=== PATIENT | female | born 1990 | race Caucasian/White ===

== ENCOUNTER 2017-10-02 15:52 | Emergency (ER) | payer OTHER, SELFPAY ==
[2017-10-02 15:54] VITALS: BP 137/77; PULSE 99; RESP 16; TEMP 37.1; O2SAT 97; BMI 34.3
--- NOTE | 2017-10-02 17:24 | EKG12_ITS ---
Test Reason : AB LABS Blood Pressure : / mmHG Vent. Rate : 080 BPM Atrial Rate : 080 BPM P-R Int : 152 ms QRS Dur : 070 ms QT Int : 362 ms P-R-T Axes : 030 025 024 degrees QTc Int : 417 ms Normal sinus rhythm Normal ECG Confirmed by RADHA VAZQUEZ, LAVINIA ([id number]), newspaper managing editor MARIA M ODONNELL ([id number]) on 10/04/2017 1:45:53 PM Referred By: DORA Confirmed By:LAVINIA GARCIA MD
--- NOTE | 2017-10-02 17:26 | US_ITS ---
STUDY: THYROID ULTRASOUND REASON FOR EXAM: Female, 27 years old. Left neck mass. TECHNIQUE: Ultrasound evaluation of the thyroid was performed with real-time and static saldana-scale imaging. COMPARISON: None. FINDINGS: RIGHT LOBE: The right lobe of the thyroid gland measures 5.7 x 1.8 x 1.7 cm. There is a heterogeneous echotexture. There are no demonstrated solid, cystic or complex lesions. There is increased vascularity throughout the right lobe. LEFT LOBE: The left lobe of the thyroid gland measures 5.3 x 1.6 x 1.9 cm. There is a heterogeneous echotexture. There are no demonstrated solid, cystic or complex lesions. There is increased vascularity throughout the gland. ISTHMUS: The isthmus measures 4 mm . There are prominent nonpathologically enlarged lymph nodes adjacent to the thyroid gland that are likely reactive. US/Thyroid IMPRESSION: Enlarged, heterogenous and hypervascular thyroid gland suggestive of a history of thyroiditis. Electronically Signed: Becky Luciano MD at 18:18 EST Tel , Service support ,
[2017-10-02 17:49] LABS: Absolute Lymphocyte Count 2.42 X10^3/ul (0.83-4.51); Absolute Neutrophil Count 7.6 X10^3/uL (2.0-7.7); Basophil# 0.07 X10^3/uL; Basophil% 0.6 % (0-1); Eosinophil# 0.27 X10^3/uL; Eosinophils% 2.5 % (0-5); Hematocrit 38.4 % (37-47); Hemoglobin 12.6 g/dl (12.0-15.0); Lymphocyte # 2.42 X10^3/ul (4.0); Lymphocyte % 22.2 % (19-41); Mean Corp Hgb Conc 32.8 g/gl (32-36); Mean Corpuscular Volume 79.2 fL (81-99); Mean Platelet Vol. 10.6 fl (6.2-12.0); Monocyte# 0.52 X10^3/uL; Monocyte% 4.8 % (0-10); Neutrophil # 7.58 X10^3/uL (2.7-7.7); Neutrophil % 69.7 % (47-70); Platelet Count 316 K/mm3 (150-450); RBC Distribution Width CV 13.6 % (11.6-14.6); RBC Distribution Width SD 37.7 fl (35.1-43.9); Red Blood Count 4.85 M/mm3 (4.2-5.4); White Blood Count 10.9 K/mm3 (4.4-11.0)
[2017-10-02 17:51] LABS: POSITIVE COUNT NO; POSITIVE DIFFERENTIAL NO; POSITIVE MORPHOLOGY NO
[2017-10-02 18:04] LABS: T3 Total - Triiodothyronine 1.01 ng/mL (0.6-1.81)
[2017-10-02 18:08] LABS: Anion Gap 5 (5-15); BUN 14 mg/dL (7-18); BUN/Creat Ratio 22.4 RATIO (10-20); Calcium,Total 8.7 mg/dL (8.5-10.1); Chloride 104 mmol/L (98-107); Creatinine, Serum 0.62 mg/dL (0.55-1.02); EST Glomerular Filtration Rate 123 mL/min (>60); Est Glom Filt Rate - Afr Amer 148 mL/min (>60); Estimated Creatinine Clearance 118.74 ml/min; Glucose 79 mg/dL (74-106); Potassium 3.7 mmol/L (3.5-5.1); Sodium Level 135 mmol/L (136-145); T4 Free Direct 0.76 ng/dL (0.76-1.46); Thyroid Stim Hormone (TSH) 3.29 uIU/mL (0.358-3.74)
[2017-10-02 18:29] LABS: Pregnancy, Serum, hCG Quali. NEGATIVE Negative (0-9 Nonpreg)
[2017-10-02 19:38] VITALS: BP 124/67; PULSE 102; RESP 14; O2SAT 98
--- NOTE | 2017-10-02 19:39 | ED.RN ---
1800-Lunch report received from TIANNA Olvera.
--- NOTE | 2017-10-02 19:58 | ED.VISSUMM ---
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 Patient states that approximately a month ago the doctor at the clinic where she works ran a TSH on her. It returned low at 0.02. Patient made an appointment to see a primary care physician but missed the appointment. She states she feels anxious and over the past couple days and started to have some anterior throat pain. She thinks she felt a mass on her thyroid today. Physical Examination: Vital signs are unremarkable. Patient sitting upright in bed in no acute distress. Head neck examination does reveal mild tenderness over the thyroid. I do not appreciate any gross masses. Heart is regular rate and rhythm. No lung sounds are clear. Abdomen is soft nontender. Test Results: Ultrasound of the thyroid shows enlarged, heterogeneous, hypervascular thyroid gland suggestive of a history of thyroiditis. EKG is sinus at 80 with no sign of acute ischemia. CBC is normal. Chemistry studies normal. test negative. TSH, T3, and free T4 are all normal here. Emergency Department Course and Treatment: Test results were discussed with the patient. At this time her thyroid levels are normal. She was encouraged to follow-up for further evaluation of her thyroid. Treatment Plan: [] Disposition: Discharge Impression: Enlarged thyroid with normal thyroid labs This note was generated with [employer] dictation software. It may contain incorrect words, spelling, and punctuation that were not noted in review of the chart prior to signing ED Disposition - Plan for ED Patient: Disposition: Home or Assisted Living Chief Complaint: Abn Labs Instructions: Common Thyroid Problems Referrals: Alvin Scott MD [STAFF PHYSICIAN] -
[2017-10-02 20:12] VITALS: BP 125/76; PULSE 74; RESP 16; O2SAT 99
--- NOTE | 2017-10-02 20:12 | ED.RN ---
REVIEWED D/C INSTRUCTIONS, FOLLOW UP CARE, AND S/S THAT WOULD WARRANT A RETURN TO THE ED WITH PT. PT VERBALIZED AN UNDERSTANDING AND DENIES FURTHER QUESTIONS FOR THIS RN. PT SKIN P/W/D, RESP EVEN AND UNLABORED, PT A&O X 3, NO DISTRESS NOTED. PT AMBULATED OUT OF ED, GAIT STEADY.
== END 2017-10-02 20:15 | disposition home or self-care (01) ==
PROVIDERS: Emergency Provider Emergency Medicine
DX: E04.9 Nontoxic goiter, unspecified (principal)
CPT/HCPCS: 76536; 80048; 84439; 84443; 84480; 84703; 85025; 93005; 99284; A4216

== ENCOUNTER → 2017-12-13 09:59 | Outpatient (CLI) | payer OTHER, SELFPAY ==
[2017-12-13 12:46] LABS: Absolute Lymphocyte Count 2.05 X10^3/ul (0.83-4.51); Absolute Neutrophil Count 5.8 X10^3/uL (2.0-7.7); Basophil# 0.05 X10^3/uL; Basophil% 0.6 % (0-1); Eosinophil# 0.19 X10^3/uL; Eosinophils% 2.2 % (0-5); Hematocrit 35.2 % (37-47); Lymphocyte # 2.05 X10^3/ul (4.0); Lymphocyte % 24.1 % (19-41); Mean Corp Hgb Conc 31.3 g/gl (32-36); Mean Platelet Vol. 11.1 fl (6.2-12.0); Monocyte# 0.43 X10^3/uL; Monocyte% 5.1 % (0-10); Neutrophil # 5.78 X10^3/uL (2.7-7.7); Neutrophil % 67.9 % (47-70); Platelet Count 305 K/mm3 (150-450); RBC Distribution Width CV 13.6 % (11.6-14.6); RBC Distribution Width SD 39.1 fl (35.1-43.9); White Blood Count 8.5 K/mm3 (4.4-11.0)
[2017-12-13 12:48] LABS: Vitamin B12 328 pg/mL (211-911); Vitamin D,25 Hydroxy 11.1 ng/mL (29.95-100.01)
[2017-12-13 12:55] LABS: ALB/GLOB Ratio 0.8 RATIO (0.9-2.4); AST(SGOT) 9 U/L (15-37); Alanine Aminotransfer ALT/SGPT 15 U/L (13-56); Albumin, Serum 3.7 g/dL (3.2-5.0); Alkaline Phosphatase 124 U/L (45-117); Anion Gap 9 (5-15); BUN 12 mg/dL (7-18); BUN/Creat Ratio 19.1 RATIO (10-20); Calcium,Total 8.8 mg/dL (8.5-10.1); Chloride 108 mmol/L (98-107); Creatinine, Serum 0.63 mg/dL (0.55-1.02); EST Glomerular Filtration Rate 122 mL/min (>60); Est Glom Filt Rate - Afr Amer 147 mL/min (>60); Globulin 4.5 g/dL (2.2-4.2); Glucose 79 mg/dL (74-106); Magnesium 2.1 mg/dL (1.6-2.6); POSITIVE COUNT NO; POSITIVE DIFFERENTIAL NO; POSITIVE MORPHOLOGY NO; Potassium 3.7 mmol/L (3.5-5.1); Protein, Total 8.2 g/dL (6.4-8.2); Sodium Level 142 mmol/L (136-145); T4 Free Direct 0.92 ng/dL (0.76-1.46); Thyroid Stim Hormone (TSH) 1.84 uIU/mL (0.358-3.74)
[2017-12-16 11:12] LABS: Vitamin B1, Thiamine 122.8 nmol/L (66.5-200.0)
== END ==
PROVIDERS: Family Provider Family Medicine; PCP Family Medicine; Visit Provider Family Medicine
DX: R53.83 Other fatigue (principal); R20.0 Anesthesia of skin; R00.2 Palpitations
CPT/HCPCS: 36415; 80053; 82306; 82607; 82746; 83735; 84425; 84439; 84443; 85025

== ENCOUNTER → 2017-12-25 16:10 | Outpatient (CLI) | payer OTHER, SELFPAY ==
--- NOTE | 2017-12-25 16:15 | MRI_ITS ---
STUDY: MRI BRAIN WITH AND WITHOUT CONTRAST REASON FOR EXAM: Female, 27 years old. Visual changes with numbness in arms and hands TECHNIQUE: Standardized multiplanar fat and water weighted pulse sequences were obtained. 10 ml of Gadavist contrast material was administered intravenously for the contrast portion of the examination. COMPARISON: None. FINDINGS: Normal size of the ventricles and extra-axial spaces for the patient's age. Normal white matter tracts of the supratentorial brain. Normal bilateral basal ganglia. Normal thalami. There is no extra-axial fluid accumulation. Normal flow voids within the major intracranial circulation suggesting patency by spin echo criteria. Normal venous enhancement. There is no enhancing intra-axial or extra-axial abnormality. Normal sella turcica, pituitary gland, infundibular stalk, optic chiasm and hypothalamus. Normal tectal plate and pineal gland. Normal midbrain, duncan and medulla. Normal cerebellum. Normal basal cisterns. Normal bilateral temporal bones. Normal bilateral internal auditory canals. No demonstrated orbital abnormality, within the constraints of a routine brain study. Normal visualized paranasal sinuses. Normal calvarium and skull base. Normal visualized soft tissue structures. Normal visualized upper cervical spine. MRI/Brain W/WO Contrast IMPRESSION: Normal unenhanced and enhanced MRI of the brain. Electronically Signed: Herve Martinez MD at 17:52 EDT , Service support ,
== END ==
PROVIDERS: Family Provider Family Medicine; PCP Family Medicine; Visit Provider Family Medicine
DX: H53.9 Unspecified visual disturbance (principal)
CPT/HCPCS: 70553; A9585

== ENCOUNTER → 2018-04-03 12:07 | Outpatient (CLI) | payer OTHER, SELFPAY ==
[2018-04-03 13:44] LABS: Absolute Lymphocyte Count 2.15 X10^3/ul (0.83-4.51); Absolute Neutrophil Count 5.9 X10^3/uL (2.0-7.7); Basophil# 0.03 X10^3/uL; Basophil% 0.3 % (0-1); Eosinophil# 0.21 X10^3/uL; Eosinophils% 2.4 % (0-5); Hematocrit 40.1 % (37-47); Hemoglobin 12.8 g/dl (12.0-15.0); Lymphocyte # 2.15 X10^3/ul (4.0); Lymphocyte % 24.8 % (19-41); Mean Corp Hgb Conc 31.9 g/gl (32-36); Mean Corpuscular Hgb 25.8 pg (27.0-32.0); Mean Corpuscular Volume 80.7 fL (81-99); Mean Platelet Vol. 10.7 fl (6.2-12.0); Monocyte# 0.42 X10^3/uL; Monocyte% 4.8 % (0-10); Neutrophil # 5.86 X10^3/uL (2.7-7.7); Neutrophil % 67.6 % (47-70); POSITIVE COUNT NO; POSITIVE DIFFERENTIAL NO; POSITIVE MORPHOLOGY NO; Platelet Count 300 K/mm3 (150-450); RBC Distribution Width CV 15.6 % (11.6-14.6); RBC Distribution Width SD 45.4 fl (35.1-43.9); Red Blood Count 4.97 M/mm3 (4.2-5.4); White Blood Count 8.7 K/mm3 (4.4-11.0)
[2018-04-03 13:59] LABS: Ferritin 4 ng/mL (8-252); Iron 50 ug/dL (50-170); Iron Binding Capacity,Total 424 ug/dL (250-450)
== END ==
PROVIDERS: Family Provider Family Medicine; PCP Family Medicine; Visit Provider Family Medicine
DX: D64.9 Anemia, unspecified (principal); E55.9 Vitamin D deficiency, unspecified
CPT/HCPCS: 36415; 82306; 82728; 83540; 83550; 85025

== ENCOUNTER → 2018-04-13 13:42 | Outpatient (CLI) | payer OTHER, SELFPAY ==
[2018-04-13 15:30] LABS: hCG Titer Quant., Serum 158 mIU/mL (<9 non-preg)
== END ==
PROVIDERS: Family Provider Family Medicine; PCP Family Medicine; Visit Provider Advanced Practice Midwife
DX: O26.851 Spotting complicating pregnancy, first trimester (principal); Z3A.00 Weeks of gestation of pregnancy not specified
CPT/HCPCS: 36415; 84702

== ENCOUNTER 2018-07-11 14:19 | Emergency (ER) | payer OTHER, SELFPAY ==
[2018-07-11 14:19] VITALS: BP 143/89; PULSE 105; O2SAT 99
[2018-07-11 14:21] VITALS: BP 153/81; PULSE 101; RESP 18; TEMP 35.9; O2SAT 100; BMI 36.1
[2018-07-11 14:46] VITALS: BP 132/76; BP 139/81; BP 159/80; PULSE 104; PULSE 98
--- NOTE | 2018-07-11 15:03 | ED.RN ---
DURING ORTHO PATIENT MY BLOOD PRESSURE IS USUALLY NOT THAT HIGH, USUALLY 90'S OVER 60'S
[2018-07-11 15:55] LABS: Absolute Neutrophil Count 5.6 X10^3/uL (2.0-7.7); Basophil# 0.04 X10^3/uL; Basophil% 0.5 % (0-1); Eosinophils% 2.3 % (0-5); Lymphocyte % 28.4 % (19-41); Mean Corp Hgb Conc 32.4 g/gl (32-36); Mean Corpuscular Hgb 27.3 pg (27.0-32.0); Mean Corpuscular Volume 84.3 fL (81-99); Mean Platelet Vol. 9.5 fl (6.2-12.0); Monocyte# 0.43 X10^3/uL; Monocyte% 4.9 % (0-10); Neutrophil # 5.62 X10^3/uL (2.7-7.7); Neutrophil % 63.8 % (47-70); Platelet Count 280 K/mm3 (150-450); RBC Distribution Width CV 13.9 % (11.6-14.6); Red Blood Count 4.39 M/mm3 (4.2-5.4); White Blood Count 8.8 K/mm3 (4.4-11.0)
[2018-07-11 15:59] LABS: Color, Urine Yellow (Yellow); Glucose, Dipstick Normal (Normal); Ketone-Dipstick Negative (Negative); Leukocyte Esterase-Dipstick 100 /ul (Negative); Nitrite-Dipstick Negative (Negative); Occult Blood-Urine 250 /ul (Negative); Protein-Dipstick 15 mg/dl (Negative); Urine Bilirubin Dipstick Negative (Negative); Urine Clarity Sl. Cloudy (Clear); Urine Urobilinogen Normal (Normal)
[2018-07-11 16:00] LABS: Internal QC Validated? YES +Cl - CLEAR BKGD; Pregnancy, Urine Negative Negative
[2018-07-11 16:01] LABS: POSITIVE COUNT NO; POSITIVE DIFFERENTIAL NO; POSITIVE MORPHOLOGY NO
--- NOTE | 2018-07-11 16:20 | ED.VIS.GEN ---
History of Present Illness Chief Complaint: Vag Bleeding Informant: Patient Onset: Days - 4-5 Timing: Continuous, Waxes and wanes Quality: vag bleeding Current Severity: Moderate Maximum Severity: Severe - at times, 1-2 pads or tampons per hr over past 1-2 days Worsened by: nothing Relieved by: nothing Associated Symptoms: initially some pelvic cramping, none now. Narrative: had IUP placed 2 mos ago by BUSINESS DEVELOPMENT ENGINEER at [facility]. Past Medical History - Allergies and Home Meds Allergies/Adverse Reactions: Allergies No Known Allergies Allergy (Verified 07/11/18 14:21) Primary Care Physician: Alvin Scott MD [Primary Care Provider] - Smoking Status: Never smoker Review of Systems General: Reports: Malaise. Denies: Chills, Fever, Sweats Cardiovascular: Denies: Chest pain, Palpitations Respiratory: Denies: Dyspnea, Cough, Dyspnea on exertion Gastrointestinal: Reports: Abdominal pain - gone now. Denies: Nausea, Vomiting, Diarrhea, Melena, Hematochezia Genitourinary: Reports: - - vaginal bleeding, no discharge otherwise, no vag pain/prurutis. Denies: Dysuria, Hematuria, Frequency Musculoskeletal: Denies: Back pain, Extremity Pain Skin: Denies: Rash Neurological: Denies: Headache, Weakness, Numbness Physical Exam Vital Signs/Narrative: Vital Signs Temp Pulse Pulse Pulse Resp BP BP 07/11/18 14:46 98 104 H 132/76 H 07/11/18 14:21 96.6 F L 101 H 18 153/81 H 07/11/18 14:19 105 H 143/89 H BP BP Pulse Ox 07/11/18 14:46 139/81 H 159/80 H 07/11/18 14:21 100 07/11/18 14:19 99 Inital Vital Signs reviewed: Yes General: Well nourished, Well developed, - - well-appearing, nad Head: Normocephalic, Atraumatic Eyes: Perrl, EOMI ENT: Moist mucous membranes, No rhinorrhea Neck: Supple, Nontender Cardiovascular: Regular rate, Regular rhythm, No murmurs. Negative for: Tachycardia Respiratory: No distress, CTA bilaterally, Chest nontender Abdomen: Soft, Nontender, Nondistended, Normal bowel sounds : declined by pt Back: Nontender, Normal Inspection, CVA tenderness Extremities: Nontender, No edema Skin: Normal color, No rash Neurological: Alert, Oriented x3, Cranial nerves II-XII grossly intact, Normal Strength, Normal Sensation Psychological: Normal affect Diagnostic/Tx/Re-eval Laboratory Tests 07/11/18 07/11/18 07/11/18 Range/Units 15:35 15:35 15:35 WBC 8.8 (4.4-11.0) K/mm3 RBC 4.39 (4.2-5.4) M/mm3 Hgb 12.0 (12.0-15.0) g/dl Hct 37.0 (37-47) % MCV 84.3 (81-99) fL MCH 27.3 (27.0-32.0) pg MCHC 32.4 (32-36) g/gl RDW 13.9 (11.6-14.6) % RDW Differential 43.0 (35.1-43.9) fl Plt Count 280 (150-450) K/mm3 MPV 9.5 (6.2-12.0) fl Immature Gran % (Auto) 0.100 (0.0-0.9) % Neut % (Auto) 63.8 (47-70) % Lymph % (Auto) 28.4 (19-41) % [place] % (Auto) 4.9 (0-10) % Eos % (Auto) 2.3 (0-5) % Baso % (Auto) 0.5 (0-1) % Absolute Neuts (auto) 5.6 (2.0-7.7) X10^3/uL Absolute Lymphs (auto) 2.50 (0.83-4.51) X10^3/ul Total Counted Not Reportable Urine Color Yellow (Yellow) Urine Clarity Sl. Cloudy (Clear) Urine pH 7.0 (5.0 - 8.0) Ur Specific [place] 1.010 (1.002-1.030) Urine Protein 15 H (Negative) mg/dl Urine Glucose (UA) Normal (Normal) mg/dl Urine Ketones Negative (Negative) mg/dl Urine Occult Blood 250 H (Negative) /ul Urine Nitrite Negative (Negative) Urine Bilirubin Negative (Negative) mg/dL Urine Urobilinogen Normal (Normal) mg/dl Ur Leukocyte Esterase 100 H (Negative) /ul Urine RBC 5-10 SEEN (0-5) /hpf Urine WBC 0-5 SEEN (0-5) /hpf Ur Squamous Epith Cells 5-10 SEEN (5-10) /hpf Urine Bacteria 1+ (None Seen) /hpf Urine Mucus 1+ (<or=2+) /hpf Urine Test Negative Negative - Medical Decision Making Labs are reassuringly normal. Urine shows no sign of acute infection. is negative. Her orthostatics are unremarkable. Her blood pressures are a little elevated and she is concerned about that and seems a little anxious. I reassured her, follow-up as indicated, no acute treatment for that. She is feeling a little tingling in her legs, she has good pulses, and is neurologically intact. I feel she is stable to go home. I discussed with the brand advocate immigration manager Dr. George, she agrees with close outpatient follow-up with no other interventions or medications at this time, and she will call her for appointment within the next 1-2 days. ED Disposition - Plan for ED Patient: Disposition: Home or Assisted Living Chief Complaint: Vag Bleeding Diagnosis: Menometrorrhagia, Heavy menses due to IUD Instructions: ED Cramping Menstrual Referrals: Alvin Scott MD [Primary Care Provider] - Charlotte George DO [STAFF PHYSICIAN] - 2 Days
--- NOTE | 2018-07-11 16:25 | ED.DCSUM_ITS ---
History of Present Illness Chief Complaint: Vag Bleeding Informant: Patient Onset: Days - 4-5 Timing: Continuous, Waxes and wanes Quality: vag bleeding Current Severity: Moderate Maximum Severity: Severe - at times, 1-2 pads or tampons per hr over past 1-2 days Worsened by: nothing Relieved by: nothing Associated Symptoms: initially some pelvic cramping, none now. Narrative: had IUP placed 2 mos ago by CLIENT RETENTION SPECIALIST at [facility]. Past Medical History - Allergies and Home Meds Allergies/Adverse Reactions: Allergies No Known Allergies Allergy (Verified 07/11/18 14:21) Primary Care Physician: Alvin Scott MD [Primary Care Provider] - Smoking Status: Never smoker Review of Systems General: Reports: Malaise. Denies: Chills, Fever, Sweats Cardiovascular: Denies: Chest pain, Palpitations Respiratory: Denies: Dyspnea, Cough, Dyspnea on exertion Gastrointestinal: Reports: Abdominal pain - gone now. Denies: Nausea, Vomiting, Diarrhea, Melena, Hematochezia Genitourinary: Reports: - - vaginal bleeding, no discharge otherwise, no vag pain/prurutis. Denies: Dysuria, Hematuria, Frequency Musculoskeletal: Denies: Back pain, Extremity Pain Skin: Denies: Rash Neurological: Denies: Headache, Weakness, Numbness Physical Exam Vital Signs/Narrative: Vital Signs Temp Pulse Pulse Pulse Resp BP BP 07/11/18 14:46 98 104 H 132/76 H 07/11/18 14:21 96.6 F L 101 H 18 153/81 H 07/11/18 14:19 105 H 143/89 H BP BP Pulse Ox 07/11/18 14:46 139/81 H 159/80 H 07/11/18 14:21 100 07/11/18 14:19 99 Inital Vital Signs reviewed: Yes General: Well nourished, Well developed, - - well-appearing, nad Head: Normocephalic, Atraumatic Eyes: Perrl, EOMI ENT: Moist mucous membranes, No rhinorrhea Neck: Supple, Nontender Cardiovascular: Regular rate, Regular rhythm, No murmurs. Negative for: Tachycardia Respiratory: No distress, CTA bilaterally, Chest nontender Abdomen: Soft, Nontender, Nondistended, Normal bowel sounds : declined by pt Back: Nontender, Normal Inspection, CVA tenderness Extremities: Nontender, No edema Skin: Normal color, No rash Neurological: Alert, Oriented x3, Cranial nerves II-XII grossly intact, Normal Strength, Normal Sensation Psychological: Normal affect Diagnostic/Tx/Re-eval Laboratory Tests 07/11/18 07/11/18 07/11/18 Range/Units 15:35 15:35 15:35 WBC 8.8 (4.4-11.0) K/mm3 RBC 4.39 (4.2-5.4) M/mm3 Hgb 12.0 (12.0-15.0) g/dl Hct 37.0 (37-47) % MCV 84.3 (81-99) fL MCH 27.3 (27.0-32.0) pg MCHC 32.4 (32-36) g/gl RDW 13.9 (11.6-14.6) % RDW Differential 43.0 (35.1-43.9) fl Plt Count 280 (150-450) K/mm3 MPV 9.5 (6.2-12.0) fl Immature Gran % (Auto) 0.100 (0.0-0.9) % Neut % (Auto) 63.8 (47-70) % Lymph % (Auto) 28.4 (19-41) % [place] % (Auto) 4.9 (0-10) % Eos % (Auto) 2.3 (0-5) % Baso % (Auto) 0.5 (0-1) % Absolute Neuts (auto) 5.6 (2.0-7.7) X10^3/uL Absolute Lymphs (auto) 2.50 (0.83-4.51) X10^3/ul Total Counted Not Reportable Urine Color Yellow (Yellow) Urine Clarity Sl. Cloudy (Clear) Urine pH 7.0 (5.0 - 8.0) Ur Specific [place] 1.010 (1.002-1.030) Urine Protein 15 H (Negative) mg/dl Urine Glucose (UA) Normal (Normal) mg/dl Urine Ketones Negative (Negative) mg/dl Urine Occult Blood 250 H (Negative) /ul Urine Nitrite Negative (Negative) Urine Bilirubin Negative (Negative) mg/dL Urine Urobilinogen Normal (Normal) mg/dl Ur Leukocyte Esterase 100 H (Negative) /ul Urine RBC 5-10 SEEN (0-5) /hpf Urine WBC 0-5 SEEN (0-5) /hpf Ur Squamous Epith Cells 5-10 SEEN (5-10) /hpf Urine Bacteria 1+ (None Seen) /hpf Urine Mucus 1+ (<or=2+) /hpf Urine Test Negative Negative - Medical Decision Making Labs are reassuringly normal. Urine shows no sign of acute infection. is negative. Her orthostatics are unremarkable. Her blood pressures are a little elevated and she is concerned about that and seems a little anxious. I reassured her, follow-up as indicated, no acute treatment for that. She is feeling a little tingling in her legs, she has good pulses, and is neurologically intact. I feel she is stable to go home. I discussed with the plastic cablemaking machine operator field identification specialist Dr. George, she agrees with close outpatient follow-up with no other interventions or medications at this time, and she will call her for appointment within the next 1-2 days. ED Disposition - Plan for ED Patient: Disposition: Home or Assisted Living Chief Complaint: Vag Bleeding Diagnosis: Menometrorrhagia, Heavy menses due to IUD Instructions: ED Cramping Menstrual Referrals: Alvin Scott MD [Primary Care Provider] - Charlotte George DO [STAFF PHYSICIAN] - 2 Days
[2018-07-11 16:27] LABS: Bacteria 1+ /hpf (None Seen); Mucous, Urine 1+ /hpf (<or=2+); Red Blood Cells-Urine 5-10 SEEN /hpf (0-5); Squamous Epithelial Cells - UA 5-10 SEEN /hpf (5-10); White Blood Cells 0-5 SEEN /hpf (0-5)
[2018-07-11 17:13] VITALS: BP 141/86; PULSE 117; RESP 18; O2SAT 99
--- NOTE | 2018-07-11 17:29 | ED.RN ---
PT STARTS CRYING D/C INSTRUCTIONS ARE BEING REVIEWED. PT STATES SHE FEELS LIKE HER CONCERNS HAVE NOT BEEN ADDRESSED/TAKEN CARE OF. STATES HER LEGS GO NUMB AND SHE FEELS LIKE SHE'S GOING TO PASS OUT. INFORMED DR MACAROI. STATES PT LABS AND VS ARE NOT CONCERNING FOR AN EMERGENT ISSUE, STATES HE DOES NOT FEEL THAT SHE NEEDS MORE TESTING. STATES THAT WE CAN START AN IV AND GIVE PT SOME IVF TO SEE IF THAT HELPS HER SYMPTOMS. PT DECLINES IVF AND STATES SHE MAY BE STRESSED. STATES SHE WILL FOLLOW UP W/HER PCP AND WIRE WINDING MACHINE OPERATOR [facility]. DENIES FURTHER NEEDS. STATES SHE FEELS COMFORTABLE DRIVING HERSELF HOME.
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
== END 2018-07-11 17:34 | disposition home or self-care (01) ==
PROVIDERS: Emergency Provider Emergency Medicine; Family Provider Family Medicine; PCP Family Medicine
DX: N92.1 Excessive and frequent menstruation with irregular cycle (principal); Z97.5 Presence of (intrauterine) contraceptive device; R20.2 Paresthesia of skin
CPT/HCPCS: 81001; 81025; 85025; 99283; A4216

== ENCOUNTER → 2019-01-08 14:56 | Outpatient (CLI) | payer OTHER, SELFPAY ==
[2019-01-08 17:47] LABS: Absolute Lymphocyte Count 1.96 X10^3/ul (0.83-4.51); Absolute Neutrophil Count 6.2 X10^3/uL (2.0-7.7); Basophil# 0.03 X10^3/uL; Basophil% 0.3 % (0-1); Eosinophil# 0.21 X10^3/uL; Eosinophils% 2.3 % (0-5); Hematocrit 34.9 % (37-47); Hemoglobin 11.1 g/dl (12.0-15.0); Lymphocyte # 1.96 X10^3/ul (4.0); Lymphocyte % 21.6 % (19-41); Mean Corp Hgb Conc 31.8 g/gl (32-36); Mean Corpuscular Hgb 24.8 pg (27.0-32.0); Mean Corpuscular Volume 77.9 fL (81-99); Mean Platelet Vol. 10.7 fl (6.2-12.0); Monocyte# 0.64 X10^3/uL; Neutrophil # 6.21 X10^3/uL (2.7-7.7); Neutrophil % 68.5 % (47-70); POSITIVE COUNT NO; POSITIVE DIFFERENTIAL NO; POSITIVE MORPHOLOGY NO; Platelet Count 291 K/mm3 (150-450); RBC Distribution Width SD 38.8 fl (35.1-43.9); Red Blood Count 4.48 M/mm3 (4.2-5.4); White Blood Count 9.1 K/mm3 (4.4-11.0)
[2019-01-08 18:06] LABS: Ferritin 5 ng/mL (8-252); Iron 37 ug/dL (50-170); Iron Binding Capacity,Total 399 ug/dL (250-450)
[2019-01-08 20:38] LABS: Vitamin D,25 Hydroxy 16.5 ng/mL (29.95-100.01)
== END ==
PROVIDERS: Family Provider Family Medicine; PCP Family Medicine; Referring Provider Family Medicine; Visit Provider Family Medicine
DX: R79.0 Abnormal level of blood mineral (principal); E55.9 Vitamin D deficiency, unspecified
CPT/HCPCS: 36415; 82306; 82728; 83540; 83550; 85025

== ENCOUNTER 2019-05-17 15:46 | Emergency (ER) | payer OTHER, SELFPAY ==
[2019-05-17 15:47] VITALS: BP 154/85; PULSE 111; RESP 16; TEMP 36.1; O2SAT 99; BMI 35.2
--- NOTE | 2019-05-17 16:01 | CT_ITS ---
STUDY: CT ABDOMEN AND PELVIS WITH CONTRAST REASON FOR EXAM: Female, 28 years old. Pain RADIATION DOSAGE (If Supplied By Facility): DLP = ( 1277.90 ) mGycm TECHNIQUE: Transaxial images were obtained from the dome of the diaphragm to the symphysis pubis with oral contrast. 100ml ml of Isovue 300 contrast was administered. Sagittal and coronal images were reconstructed. Individualized dose optimization techniques were used for this CT. COMPARISON: CT abdomen and pelvis March 16, 2017 FINDINGS: The visualized lung bases are clear. The visualized portions of the heart and pericardium are within normal limits. The liver is within normal limits. There are no suspicious hepatic lesions. The gallbladder is absent or contracted. The spleen is normal in size. The pancreas is within normal limits. The adrenal glands are within normal limits. There are no obstructing renal stones. There is no hydronephrosis. There are no focal renal lesions. Normal visualized stomach. There is no bowel obstruction or inflammation. The appendix is normal. The aorta is normal in caliber. There is no abdominal or pelvic free air, free fluid, fluid collection or lymphadenopathy. There is a right adnexal 2.5 cm cyst. An IUD is in place. There are no destructive osseous lesions. CT/Abdomen/Pelvis WITH Contrast IMPRESSION: No acute abdominal or pelvic pathology. Normal appendix. Right adnexal 2.5 cm cyst, likely dominant ovarian. If further clinical concern, consider pelvic ultrasound. Electronically Signed: Herve Walls, at 17:57 EDT Tel , Service support ,
--- NOTE | 2019-05-17 16:03 | ED.VISSUMM ---
- ER Visit Summary Date of Service: 05/17/19 Chief Complaint: Abdominal pain History of Present Illness: The patient is a 28 F with right lower quadrant abdominal pain. The pain started about a week ago. It was worse today. It feels sharp and radiates to the back. Associated with low-grade fever and decreased appetite. Patient also had nausea with intermittent diarrhea and constipation all week. She never had this before. History of cholecystectomy. No other abdominal surgeries. Physical Examination: Heart rate 111. Otherwise vitals unremarkable. Right lower quadrant tender to palpation. No guarding or rebound. Back is nontender. Skin appears normal. Test Results: Labs, urinalysis, CT pending. Emergency Department Course and Treatment: Patient treated with fluids and Zofran while awaiting results. She also requested a medicine and was treated with morphine while awaiting results. White count was 16.7. CMP and lipase otherwise normal. Urinalysis unremarkable. hCG negative. CT abdomen and pelvis showed normal appendix and nothing acute. She does have a right adnexal cyst measuring 2.5 cm. On reevaluation, the patient is much more comfortable. Moving freely. I do not believe she has torsion. Her pain is well controlled. She does not have anything that would suggest a tubo-ovarian abscess, ectopic , or other acute INSULATION NOZZLEMAN pathology. We talked about her leukocytosis. This might be from the cyst and from pain. She might be developing an infection. I believe she is appropriate to go home. She will be treated with naproxen and Zofran. Stay hydrated. Follow-up with her doctor for recheck. If she is getting worse, she should just come back here immediately. Patient voiced understanding and agreement. Treatment Plan: As above Disposition: Discharged Impression: 1. Ovarian cyst right 2. Leukocytosis This note was generated with Privacy Networksation software. It may contain incorrect words, spelling, and punctuation that were not noted in review of the chart prior to signing ED Disposition - Plan for ED Patient: Referrals: Alvin Scott MD [Primary Care Provider] -
[2019-05-17] MEDS: 0.9% Normal Saline 1,000 ML 1000 ML IV (16:21)
[2019-05-17] MEDS: Ondansetron 4 MG/2 ML Vial IV (16:21)
[2019-05-17 16:40] LABS: Absolute Lymphocyte Count 1.89 X10^3/uL (0.83-4.51); Absolute Neutrophil Count 13.7 X10^3/uL (2.0-7.7); Basophil# 0.05 X10^3/uL; Basophil% 0.3 % (0-1); Eosinophil# 0.08 X10^3/uL; Eosinophils% 0.5 % (0-5); Hematocrit 41.5 % (37-47); Hemoglobin 13.4 g/dL (12.0-15.0); Lymphocyte # 1.89 X10^3/ul (4.0); Lymphocyte % 11.3 % (19-41); Mean Corp Hgb Conc 32.3 g/dL (32-36); Mean Corpuscular Hgb 27.4 pg (27.0-32.0); Mean Corpuscular Volume 84.9 fL (81-99); Mean Platelet Vol. 10.1 fl (6.2-12.0); Monocyte# 0.94 X10^3/uL; Monocyte% 5.6 % (0-10); NRBC Flagged by Analyzer 0 % (0-5); Neutrophil # 13.71 X10^3/uL (2.7-7.7); Platelet Count 303 K/mm3 (150-450); RBC Distribution Width CV 13.1 % (11.6-14.6); RBC Distribution Width SD 40.6 fl (35.1-43.9); Red Blood Count 4.89 M/mm3 (4.2-5.4); White Blood Count 16.7 K/mm3 (4.4-11.0)
[2019-05-17 16:56] LABS: ALB/GLOB Ratio 0.9 RATIO (0.9-2.4); AST(SGOT) 10 U/L (15-37); Alanine Aminotransfer ALT/SGPT 20 U/L (13-56); Alkaline Phosphatase 122 U/L (45-117); Anion Gap 6 (5-15); BUN 12 mg/dL (7-18); BUN/Creat Ratio 18.7 RATIO (10-20); Calcium,Total 9.2 mg/dL (8.5-10.1); Chloride 105 mmol/L (98-107); Creatinine, Serum 0.64 mg/dL (0.55-1.02); EST Glomerular Filtration Rate 117 mL/min (>60); Est Glom Filt Rate - Afr Amer 142 mL/min (>60); Estimated Creatinine Clearance 114.02 ml/min; Globulin 4.4 g/dL (2.2-4.2); Glucose 79 mg/dL (74-106); Lipase 85 U/L (73-393); Potassium 3.6 mmol/L (3.5-5.1); Protein, Total 8.4 g/dL (6.4-8.2); Sodium Level 138 mmol/L (136-145)
[2019-05-17 17:16] LABS: Internal QC Validated? YES +Cl - CLEAR BKGD; Pregnancy, Serum, hCG Quali. NEGATIVE Negative
[2019-05-17 17:58] LABS: Bacteria 0 SEEN /hpf (None Seen); Mucous, Urine 0 SEEN /hpf (<or=2+); Red Blood Cells-Urine 0 SEEN /hpf (0-5)
[2019-05-17 18:04] LABS: Color, Urine Yellow (Yellow); Glucose, Dipstick Normal (Normal); Ketone-Dipstick Negative (Negative); Leukocyte Esterase-Dipstick 25 /ul (Negative); Nitrite-Dipstick Negative (Negative); Occult Blood-Urine Negative /ul (Negative); Protein-Dipstick Negative (Negative); Urine Bilirubin Dipstick Negative (Negative); Urine Clarity Clear (Clear); Urine Urobilinogen Normal (Normal)
[2019-05-17 18:08] VITALS: PULSE 105; RESP 17; O2SAT 99
[2019-05-17] MEDS: Morphine 4 MG/ML Syringe IV (18:11)
[2019-05-17 18:26] LABS: Squamous Epithelial Cells - UA 0-5 SEEN /hpf (5-10); White Blood Cells 0-5 SEEN /hpf (0-5)
--- NOTE | 2019-05-17 19:02 | ED.DEP ---
ED Disposition - Plan for ED Patient: Instructions: Ovarian Cyst Prescriptions: Naproxen [Naprosyn] 500 mg PO BID PRN #20 tab Prescription Printed Ondansetron [Zofran Odt] 4 mg PO Q8H PRN PRN #10 tab PRN Reason: Nausea Prescription Printed Referrals: Alvin Scott MD [Primary Care Provider] -
[2019-05-17 19:21] VITALS: BP 134/78; PULSE 72; RESP 16; O2SAT 100
== END 2019-05-17 19:21 | disposition home or self-care (01) ==
PROVIDERS: Emergency Provider Emergency Medicine; Family Provider Family Medicine; PCP Family Medicine
DX: N83.201 Unspecified ovarian cyst, right side (principal); D72.829 Elevated white blood cell count, unspecified
CPT/HCPCS: 74177; 80053; 81001; 83690; 84703; 85025; 96361; 96374; 96375; 99283; J7030; Q9967; A4216; J2405

== ENCOUNTER 2021-08-25 12:16 | Outpatient (CLI) | payer OTHER, SELFPAY | END 2021-08-25 23:59 | disposition short-term general hospital (02) | PROVIDERS: PCP Family Medicine; Referring Provider Family Medicine; Visit Provider Nurse Practitioner Family | DX: Z00.00 Encounter for general adult medical examination without abnormal findings (principal) | CPT/HCPCS: 36415 ==

== ENCOUNTER → 2022-03-04 | Outpatient (CLI) | payer OTHER, SELFPAY ==
[2022-03-04 12:51] LABS: Absolute Lymphocyte Count 1.82 X10^3/uL (0.83-4.51); Absolute Neutrophil Count 7.8 X10^3/uL (2.0-7.7); Basophil# 0.04 X10^3/uL; Basophil% 0.4 % (0-1); Eosinophils% 1.9 % (0-5); Hematocrit 37.2 % (37-47); Hemoglobin 12.7 g/dL (12.0-15.0); Lymphocyte # 1.82 X10^3/ul (0.83-4.51); Lymphocyte % 17.3 % (19-41); Mean Corp Hgb Conc 34.1 g/dL (32-36); Mean Corpuscular Volume 87.9 fL (81-99); Mean Platelet Vol. 10.8 fl (6.2-12.0); Monocyte# 0.63 X10^3/uL; NRBC Flagged by Analyzer 0 % (0-5); Neutrophil # 7.76 X10^3/uL (2.7-7.7); Platelet Count 255 K/mm3 (150-450); RBC Distribution Width CV 12.3 % (11.6-14.6); RBC Distribution Width SD 39.6 fl (35.1-43.9); Red Blood Count 4.23 M/mm3 (4.2-5.4); White Blood Count 10.5 K/mm3 (4.4-11.0)
[2022-03-04 14:33] LABS: HIV - WCH Non-Reactive (Nonreactive); Hepatitis B Surface Antigen Non-Reactive (Nonreactive); Hepatitis C Antibody Non-Reactive (Nonreactive); Rubella IgG Reactive (Nonreactive); Syphilis Antibodies Non-reactive
[2022-03-07 01:06] LABS: Chlamydia By Nucleic Acid AMP Negative (Negative)
[2022-03-07 09:13] LABS: Gonococcus By Nucleic Acid AMP Negative (Negative)
[2022-03-08 17:04] LABS: HPV APTIMA, High Risk Negative (Negative)
== END | disposition home or self-care (01) ==
LOC: WOBLAB 11:38
PROVIDERS: PCP Family Medicine; Visit Provider Obstetrics & Gynecology
DX: Z34.81 Encounter for supervision of other normal pregnancy, first trimester (principal)
CPT/HCPCS: 36415; 85025; 86703; 86762; 86780; 86803; 87086; 87088; 87340; 87491; 87591; 87624; 88175; G0145

== ENCOUNTER 2022-05-14 09:05 | Emergency (ER) | payer OTHER, SELFPAY ==
[2022-05-14 09:06] VITALS: BP 140/98; PULSE 115; RESP 20; TEMP 36.6; O2SAT 98; BMI 35.6
--- NOTE | 2022-05-14 09:55 | EKG12_ITS ---
Test Reason : Blood Pressure : / mmHG Vent. Rate : 103 BPM Atrial Rate : 103 BPM P-R Int : 144 ms QRS Dur : 070 ms QT Int : 328 ms P-R-T Axes : 047 038 039 degrees QTc Int : 429 ms Sinus tachycardia Otherwise normal ECG Confirmed by YVETTE VAZQUEZ, LESLEE ([id number]), associate editor MAXIMO BOBBY ([id number]) on 05/17/2022 12:37:38 PM Referred By: YANY Confirmed By:LESLEE CRAWFORD MD
--- NOTE | 2022-05-14 09:56 | EDS_ITS ---
HPI History of Present Illness Chief Complaint: Palpitations Narrative Narrative: 31-year-old female currently 17 weeks presenting with palpitations which started last night. She states she does not have chest pain or shortness of breath. She states that her heart rate got up to as high as 140 but she was walking around. She states she tried to sit down and rest but her heart rate still is racing. She states she has a history of rapid heart rate which she saw her PCP for distantly. She was on a beta-adiel at that time. She states she has not taken this in a couple of years and through diet and exercise has been able to function without having palpitations. She states that she has had EKGs performed before. She is never had a Holter monitor. She states that her has been otherwise normal and there has not been any problems. 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 She states she does not have any cardiac history otherwise. She has no history of DVT/PE and no current risk factors other than . She does not have a cough. She is not lightheaded. PFSH PFSH Home Medications naproxen 500 mg tablet 500 mg PO BID PRN #20 tabs 05/17/19 [Rx Last Taken Unknown] ondansetron 4 mg disintegrating tablet 4 mg PO Q8H PRN PRN Nausea #10 tabs 05/17/19 [Rx Last Taken Unknown] cephalexin 500 mg capsule 500 mg PO Q8H #21 caps 05/14/22 [Rx Last Taken Unknow n] Allergy/AdvReac Type Severity Reaction Status Date / Time No Known Allergies Allergy Verified 05/14/22 09:08 Social History Smoking Status: Never smoker ROS ROS ED Eyes Eyes: Denies blurry vision or change in vision ENT ENT ED: Denies rhinorrhea or sore throat Cardiovascular Cardiovascular: Reports palpitations and racing heartbeat; Denies chest pain Respiratory/Chest Respiratory/Chest: Denies cough or dyspnea Gastrointestinal Gastrointestinal: Denies abdominal pain, nausea or vomiting Genitourinary Genitourinary ED: Denies dysuria or hematuria Musculoskeletal Musculoskeletal: Denies arthralgias or back pain Integumentary Denies abscess Neurologic Neurologic: Denies headache(s) or paresthesias Psychiatric Psychiatric: Denies anxiety or depression EXAM Physical Exam Const Vital Signs: 05/14/22 09:06 05/14/22 09:47 05/14/22 09:58 Temperature 97.9 F Temperature Source Temporal Pulse Rate 115 H Respiratory Rate 20 H Respiratory Effort Normal Non-Labored Respiratory Pattern Normal Blood Pressure 140/98 H Blood Pressure Mean 112 Pulse Ox 98 98 Oxygen Delivery Method Room Air Room Air 05/14/22 11:15 Temperature Temperature Source Pulse Rate 101 H Respiratory Rate 15 Respiratory Effort Respiratory Pattern Blood Pressure 109/69 Blood Pressure Mean 82 Pulse Ox 100 Oxygen Delivery Method Room Air Positive well nourished General Appearance ED: NAD; Negative for pallor HEENT Reports moist mucous membranes Eyes PERRL and EOMs intact bilaterally General Eye ED: Negative for pale conjunctiva or scleral icterus Resp normal respiratory effort and clear to auscultation bilaterally Auscultation: Negative for rales, rhonchi or wheezes Cardio regular rhythm and no murmurs Rate: tachycardic GI normal to inspection, nondistended, normoactive bowel sounds Neuro oriented x3 and CN's II-XII intact bilaterally Sensorium / Orientation: alert Motor Exam: strength 5/5 throughout Psych mental status grossly normal Skin no rashes or lesions noted and no wounds General Skin Exam: Negative for jaundice or pallor MDM MDM MDM Narrative Medical decision making narrative: 31-year-old female presenting with palpitations. She states her heart rate was about 140 when she was walking around. When she states she is in the 1 10-1 15 range. EKG was obtained on arrival and on my interpretation this is a sinus tachycardia with a ventricular rate of 103 bpm without sign of ischemic change or dysrhythmia. This x-ray on my interpretation shows no acute cardiopulmonary process and patient was given a liter of IV fluids. I did check basic lab work and her CBC and BMP are unremarkable. Her magnesium was slightly low at 1.5. TSH, T4, T3 are all normal. Urinalysis shows 500 leukocyte esterase with 50-100 white blood cells, 0-5 squamous epithelial cells and 3+ bacteria. Patient was treated with a dose of Rocephin. Urine was sent for culture. We did talk at length about risk of PE although she states she is not having any chest pain. She does states she has a history of tachycardia and is not on medication for this anymore. She states this was previously treated by her PCP who did EKGs. She has not had a Holter monitor. I spoke with Dr. Alvin Pierce who is on-call for OB and he recommended just having her follow-up as an outpatient with his clinic. If they continue to have problems with her heart rate they will have worsening of cardiology. Patient was amenable to this. Patient discharged home with a prescription for Keflex. Impression: 1. Palpitations 2. Tachycardia 3. UTI Lab Data Attestation: I reviewed the patient's lab results. Labs: Laboratory Results - last 24 hr 05/14/22 05/14/22 05/14/22 10:00 10:09 10:09 WBC 10.5 RBC 4.32 Hgb 12.6 Hct 38.0 MCV 88.0 MCH 29.2 MCHC 33.2 RDW Std Deviation 41.9 RDW Coeff of Ghassan 13.0 Plt Count 197 MPV 10.2 Immature Gran % (Auto) 0.600 Neut % (Auto) 79.6 H Lymph % (Auto) 13.4 L [place] % (Auto) 4.4 Eos % (Auto) 1.8 Baso % (Auto) 0.2 Absolute Neuts (auto) 8.3 H Absolute Lymphs (auto) 1.40 Nucleated RBC % 0 Sodium 138 Potassium 4.1 Chloride 107 Carbon Dioxide 23.0 Anion Gap 8 BUN 6 L Creatinine 0.46 L Estim Creat Clear Calc 154.42 Est GFR (MDRD) Af Amer 204 Est GFR (MDRD) Non-Af 169 BUN/Creatinine Ratio 13.0 Glucose 80 Calcium 8.9 Magnesium 1.5 L Troponin I High Sens < 3 L TSH 2.97 Free T4 0.93 Free T3 pg/dL 3.1 Urine Color Straw Urine Clarity Sl. Cloudy Urine pH 7.0 Ur Specific [place] 1.010 Urine Protein Negative Urine Glucose (UA) Normal Urine Ketones Negative Urine Occult Blood Negative Urine Nitrite Negative Urine Bilirubin Negative Urine Urobilinogen Normal Ur Leukocyte Esterase 500 H Urine RBC 0 SEEN Urine WBC 50-100 SEEN Ur Squamous Epith Cells 0-5 SEEN Urine Bacteria 3+ Urine Mucus 0 SEEN Radiography Diagnostic Testing: Clinical Impression(s) from Imaging Studies Chest X-Ray 05/14/22 10:20 IMPRESSION: Normal x-ray examination of the chest. Electronically Signed: Semaj Ayon MD at 10:38 EDT , Discharge Plan Triage Chief Complaint: Palpitations ED Provider: Leland Saravia Dx/Rx/DC Orders Instructions: ED Palpitations, ED Cystitis Female Adult Prescriptions: New cephalexin 500 mg capsule 500 mg PO Q8H Qty: 21 0RF No Action ondansetron 4 MG tablet 4 mg PO Q8H PRN PRN (Reason: Nausea) Qty: 10 0RF naproxen 500 MG tablet 500 mg PO BID PRN Qty: 20 0RF Primary Care Provider: Alvin Scott Referrals: Alvin Scott MD [Primary Care Provider] - Disposition Disposition: Home, Self Care Discharge Date/Time: 05/14/22 11:27
[2022-05-14 09:58] VITALS: O2SAT 98
[2022-05-14 10:04] LABS: Mucous, Urine 0 SEEN /hpf (<or=2+); Red Blood Cells-Urine 0 SEEN /hpf (0-5)
[2022-05-14 10:06] LABS: Color, Urine Straw (Yellow); Glucose, Dipstick Normal (Normal); Ketone-Dipstick Negative (Negative); Leukocyte Esterase-Dipstick 500 /ul (Negative); Nitrite-Dipstick Negative (Negative); Occult Blood-Urine Negative /ul (Negative); Protein-Dipstick Negative (Negative); Urine Bilirubin Dipstick Negative (Negative); Urine Clarity Sl. Cloudy (Clear); Urine Urobilinogen Normal (Normal)
[2022-05-14] MEDS: 0.9% Normal Saline 1,000 ML 1000 ML IV (10:10)
[2022-05-14 10:16] LABS: Absolute Neutrophil Count 8.3 X10^3/uL (2.0-7.7); Basophil# 0.02 X10^3/uL; Basophil% 0.2 % (0-1); Eosinophil# 0.19 X10^3/uL; Eosinophils% 1.8 % (0-5); Hemoglobin 12.6 g/dL (12.0-15.0); Lymphocyte % 13.4 % (19-41); Mean Corp Hgb Conc 33.2 g/dL (32-36); Mean Corpuscular Hgb 29.2 pg (27.0-32.0); Mean Platelet Vol. 10.2 fl (6.2-12.0); Monocyte# 0.46 X10^3/uL; Monocyte% 4.4 % (0-10); NRBC Flagged by Analyzer 0 % (0-5); Neutrophil # 8.32 X10^3/uL (2.7-7.7); Neutrophil % 79.6 % (47-70); Platelet Count 197 K/mm3 (150-450); RBC Distribution Width SD 41.9 fl (35.1-43.9); Red Blood Count 4.32 M/mm3 (4.2-5.4); White Blood Count 10.5 K/mm3 (4.4-11.0)
[2022-05-14 10:18] LABS: Bacteria 3+ /hpf (None Seen); Squamous Epithelial Cells - UA 0-5 SEEN /hpf (5-10); White Blood Cells 50-100 SEEN /hpf (0-5)
--- NOTE | 2022-05-14 10:20 | RAD_ITS ---
STUDY: X-RAY CHEST REASON FOR EXAM: Female, 31 years old. PT WITH ELEVATED HEART RATE STARTING THIS AM. PT 16 WEEKS . STATES HEART RATE OF 138 AT HOME. PATIENT WAS DOUBLE SHIELDED. TECHNIQUE: Single AP portable view of the chest. COMPARISON: None. FINDINGS: The lungs are clear and expanded. There is no demonstrated pleural abnormality. Normal size heart. Normal mediastinum and willis. Normal visualized pulmonary arteries. Normal visualized aortic arch and descending thoracic aorta. Normal visualized thoracic spine. Normal visualized ribs, clavicles, and shoulders. There is no demonstrated abnormality of the visualized soft tissue structures of the upper abdomen. RAD/Chest 1 View (Portable) IMPRESSION: Normal x-ray examination of the chest. Electronically Signed: Semaj Ayon MD at 10:38 EDT ,
[2022-05-14] MEDS: Ceftriaxone 1 GM/50 ML BAG IV (10:37)
[2022-05-14 10:41] LABS: Anion Gap 8 (5-15); BUN 6 mg/dL (7-18); Calcium,Total 8.9 mg/dL (8.5-10.1); Chloride 107 mmol/L (98-107); Creatinine, Serum 0.46 mg/dL (0.55-1.02); EST Glomerular Filtration Rate 169 mL/min (>60); Est Glom Filt Rate - Afr Amer 204 mL/min (>60); Estimated Creatinine Clearance 154.42 ml/min; Free T3 3.1 pg/mL (2.18-3.98); Glucose 80 mg/dL (74-106); Magnesium 1.5 mg/dL (1.6-2.6); Potassium 4.1 mmol/L (3.5-5.1); Sodium Level 138 mmol/L (136-145); T4 Free Direct 0.93 ng/dL (0.76-1.46); Thyroid Stim Hormone (TSH) 2.97 uIU/mL (0.358-3.74); Troponin-I HS (w/2H Reflex) < 3 pg/mL (3.0-54.0)
[2022-05-14 11:15] VITALS: BP 109/69; PULSE 101; RESP 15; O2SAT 100
[2022-05-14 12:13] LABS: Reflex Troponin-HS? (from REC) Y
== END 2022-05-14 11:27 | disposition home or self-care (01) ==
PROVIDERS: Emergency Provider Student in an Organized Health Care Education/Training Program; PCP Family Medicine; Visit Provider Student in an Organized Health Care Education/Training Program
DX: O99.891 Other specified diseases and conditions complicating pregnancy (principal); R00.0 Tachycardia, unspecified; R00.2 Palpitations; O23.42 Unspecified infection of urinary tract in pregnancy, second trimester; Z3A.17 17 weeks gestation of pregnancy
CPT/HCPCS: 71045; 80048; 81001; 83735; 84439; 84443; 84481; 84484; 85025; 87086; 87088; 93005; 96365; 99283; J7030; A4216

== ENCOUNTER → 2022-07-20 | Outpatient (CLI) | payer OTHER, SELFPAY ==
[2022-07-20 10:21] LABS: Absolute Neutrophil Count 9.7 X10^3/uL (2.0-7.7); Basophil# 0.04 X10^3/uL; Basophil% 0.3 % (0-1); Eosinophil# 0.23 X10^3/uL; Eosinophils% 1.9 % (0-5); Hematocrit 37.2 % (37-47); Hemoglobin 12.9 g/dL (12.0-15.0); Lymphocyte % 11.7 % (19-41); Mean Corp Hgb Conc 34.7 g/dL (32-36); Mean Corpuscular Hgb 30.8 pg (27.0-32.0); Mean Corpuscular Volume 88.8 fL (81-99); Mean Platelet Vol. 11.2 fl (6.2-12.0); Monocyte# 0.46 X10^3/uL; Monocyte% 3.9 % (0-10); NRBC Flagged by Analyzer 0 % (0-5); Neutrophil # 9.73 X10^3/uL (2.7-7.7); Neutrophil % 81.6 % (47-70); Platelet Count 217 K/mm3 (150-450); RBC Distribution Width SD 42.2 fl (35.1-43.9); Red Blood Count 4.19 M/mm3 (4.2-5.4); White Blood Count 11.9 K/mm3 (4.4-11.0)
[2022-07-20 10:30] LABS: Glucose Challenge Gest 1H 50g 139 mg/dL (70-140)
== END | disposition home or self-care (01) ==
LOC: WOBLAB 09:09
PROVIDERS: PCP Family Medicine; Visit Provider Obstetrics & Gynecology
DX: Z34.82 Encounter for supervision of other normal pregnancy, second trimester (principal)
CPT/HCPCS: 36415; 82950; 85025

== ENCOUNTER → 2022-08-18 | Outpatient (CLI) | payer OTHER, SELFPAY | END | disposition home or self-care (01) | LOC: WOBLAB 10:06 | PROVIDERS: PCP Family Medicine; Visit Provider Obstetrics & Gynecology | DX: Z67.91 Unspecified blood type, Rh negative (principal) | CPT/HCPCS: 36415; 86850 ==

== ENCOUNTER → 2022-09-23 | Outpatient (CLI) | payer OTHER, SELFPAY ==
[2022-09-23 10:46] LABS: Absolute Lymphocyte Count 1.77 X10^3/uL (0.83-4.51); Absolute Neutrophil Count 10.7 X10^3/uL (2.0-7.7); Basophil# 0.06 X10^3/uL; Basophil% 0.4 % (0-1); Eosinophils% 2.2 % (0-5); Hemoglobin 12.1 g/dL (12.0-15.0); Lymphocyte # 1.77 X10^3/ul (0.83-4.51); Mean Corp Hgb Conc 32.7 g/dL (32-36); Mean Corpuscular Hgb 28.8 pg (27.0-32.0); Mean Corpuscular Volume 88.1 fL (81-99); Mean Platelet Vol. 11.4 fl (6.2-12.0); Monocyte# 0.63 X10^3/uL; Monocyte% 4.6 % (0-10); NRBC Flagged by Analyzer 0 % (0-5); Neutrophil # 10.73 X10^3/uL (2.7-7.7); Neutrophil % 78.7 % (47-70); Platelet Count 192 K/mm3 (150-450); RBC Distribution Width CV 13.2 % (11.6-14.6); RBC Distribution Width SD 42.5 fl (35.1-43.9); White Blood Count 13.6 K/mm3 (4.4-11.0)
[2022-09-23 11:16] LABS: Syphilis Antibodies Non-reactive
== END | disposition home or self-care (01) ==
LOC: WOBLAB 09:51
PROVIDERS: PCP Family Medicine; Visit Provider Obstetrics & Gynecology
DX: Z34.83 Encounter for supervision of other normal pregnancy, third trimester (principal); Z36.85 Encounter for antenatal screening for Streptococcus B
CPT/HCPCS: 36415; 85025; 86780; 87077; 87081; 87186

== ENCOUNTER 2022-10-19 07:05 | Inpatient (IN) | payer OTHER, SELFPAY ==
[2022-10-19] VITALS (36 sets, daily range): BP systolic 100–131; BP diastolic 53–79; PULSE 90–113; TEMP 36.3–37.1; O2SAT 96–99; BMI 40.5
[2022-10-19] MEDS: Lactated Ringers 1,000 ML 50 ML IV ×2 (08:09→15:17)
[2022-10-19] MEDS: Oxytocin 15 Units/NS 250ml 15 UNITS/250 ML IV.SOLN 2 UNITS IV (08:09)
[2022-10-19 08:28] LABS: Absolute Lymphocyte Count 1.63 X10^3/uL (0.83-4.51); Absolute Neutrophil Count 10.4 X10^3/uL (2.0-7.7); Basophil# 0.04 X10^3/uL; Basophil% 0.3 % (0-1); Eosinophil# 0.24 X10^3/uL; Eosinophils% 1.8 % (0-5); Hematocrit 35.9 % (37-47); Hemoglobin 12.2 g/dL (12.0-15.0); Lymphocyte # 1.63 X10^3/ul (0.83-4.51); Lymphocyte % 12.5 % (19-41); Mean Corpuscular Hgb 29.8 pg (27.0-32.0); Mean Corpuscular Volume 87.6 fL (81-99); Mean Platelet Vol. 11.7 fl (6.2-12.0); Monocyte# 0.69 X10^3/uL; Monocyte% 5.3 % (0-10); NRBC Flagged by Analyzer 0 % (0-5); Neutrophil # 10.35 X10^3/uL (2.7-7.7); Neutrophil % 79.2 % (47-70); Platelet Count 218 K/mm3 (150-450); RBC Distribution Width CV 13.6 % (11.6-14.6); RBC Distribution Width SD 43.2 fl (35.1-43.9); White Blood Count 13.1 K/mm3 (4.4-11.0)
--- NOTE | 2022-10-19 08:50 | PCM.HP.BLA ---
History and Physical Date of Admission: 10/19/22 Chief complaint: Induction of labor at term History present illness: 32-year-old G4, P2 at 39 weeks and 6 days with MARY 10/20/2022 arrives for induction of labor at term. Denies headache, vision change, chest pain, shortness of breath, nausea vomit, right upper quadrant pain. Patient states good movement. is complicated by Rh- and GBS positive Obstetric history: G1: 40-week male 7 pounds 6 ounces G2: SAB G3: 41-week male 9 pounds 4 ounces G4: Current Past medical history: None Medications: vitamin Allergies: No known drug allergies Past surgical history: Cholecystectomy Social history: Denies smoking, alcohol use, drug use Family history: Denies history DVT or PE Review of systems: Besides above pertinent positives a full review of systems was performed and found to be negative Physical exam: Vitals: Blood pressure 110/63 pulse 107 General: Normal-appearing no acute distress HEENT: Normocephalic/atraumatic no cervical lymphadenopathy Cardiac/respiratory: No use accessory muscles, nonlabored breathing Abdomen: Soft, nontender, gravid Extremities: No peripheral edema normal peripheral pulses Psych: Normal affect and demeanor nonpressured speech Labs: White blood cell count 13.1 hemoglobin 12.2 hematocrit 35.9% platelets 218 Assessment plan: 32-year-old G4, P2 at 39 weeks and 6 days for induction of labor at term. Admit labor and delivery CEFM GBS positive for penicillin Pitocin induction Educated patient on options for epidural, patient elects for epidural now with history of fast labor Routine orders Anesthesia to see
[2022-10-19] MEDS: LACTATED RINGERS 500 ML 999 ML IV (09:04)
[2022-10-19 09:15] LABS: Syphilis Antibodies Non-reactive
[2022-10-19] MEDS: fentaNYL-bupivacaine (epidural) 100 ML BAG EPIDURAL ×4 (09:42→23:21)
[2022-10-19] MEDS: Penicillin G 3,000,000 Units 50 ML 100 UNITS IV ×3 (11:48→20:23)
--- NOTE | 2022-10-19 14:30 | PCM.PN.OB ---
Subjective Subjective Patient comfortable with epidural Objective Data Objective Data Vital Signs: Vital Signs Temp Pulse BP Pulse Ox 97.7 F L 100 100/63 98 10/19/22 12:24 10/19/22 13:03 10/19/22 13:03 10/19/22 13:03 Weight: 236 lb Body Mass Index (BMI) 40.5 Intake & Output: Intake and Output for Last 24 Hours 10/17/22 10/18/22 10/19/22 23:59 23:59 23:59 Intake Total 58.53 / 58.53 Balance 58.53 / 58.53 Lab / Micro Data Result Diagrams: 10/19/22 08:03 Labs: Laboratory Results - last 24 hr 10/19/22 08:03: WBC 13.1 H, RBC 4.10 L, Hgb 12.2, Hct 35.9 L, MCV 87.6, MCH 29.8, MCHC 34.0, RDW Std Deviation 43.2, RDW Coeff of Ghassan 13.6, Plt Count 218, MPV 11.7, Immature Gran % (Auto) 0.900, Neut % (Auto) 79.2 H, Lymph % (Auto) 12.5 L, [place] % (Auto) 5.3, Eos % (Auto) 1.8, Baso % (Auto) 0.3, Absolute Neuts (auto) 10.4 H, Absolute Lymphs (auto) 1.63, Nucleated RBC % 0 10/19/22 08:03: Blood Type O NEGATIVE, Antibody Screen NEGATIVE 10/19/22 08:03: Syphilis Total Ab Non-reactive Physical Exam Const alert, oriented x3, no apparent distress, average body habitus, healthy appearing and well nourished HEENT normocephalic and moist oral mucous membranes Eyes PERRL Resp normal respiratory effort, no retractions and no use of accessory muscles GI GI Narrative: Soft, nontender, gravid Narrative: Cervical exam: 350/-3. AROM blood-tinged clear fluid Psych mental status grossly normal, affect normal, speech normal and activity/motor behavior normal Assessment & Plan (1) : PLAN: Patient seen and examined. Now comfortable with epidural. Cervical exam as above. AROM blood-tinged clear fluid. Continue to titrate Pitocin
[2022-10-19] MEDS: 0.9% Saline Lock 10 ML Syringe IV (17:02)
--- NOTE | 2022-10-19 19:39 | PN.OBGYN_ITS ---
Subjective Subjective Patient comfortable with epidural Objective Data Objective Data Vital Signs: Vital Signs Temp Pulse BP Pulse Ox 98.4 F 94 114/64 98 10/19/22 19:16 10/19/22 19:16 10/19/22 19:16 10/19/22 18:14 Weight: 236 lb Body Mass Index (BMI) 40.5 Intake & Output: Intake and Output for Last 24 Hours 10/17/22 10/18/22 10/19/22 23:59 23:59 23:59 Intake Total 1120.20 / 1120.20 Output Total 900 / 900 Balance 220.20 / 220.20 Lab / Micro Data Result Diagrams: 10/19/22 08:03 Labs: Laboratory Results - last 24 hr 10/19/22 08:03: WBC 13.1 H, RBC 4.10 L, Hgb 12.2, Hct 35.9 L, MCV 87.6, MCH 29.8, MCHC 34.0, RDW Std Deviation 43.2, RDW Coeff of Ghassan 13.6, Plt Count 218, MPV 11.7, Immature Gran % (Auto) 0.900, Neut % (Auto) 79.2 H, Lymph % (Auto) 12.5 L, [place] % (Auto) 5.3, Eos % (Auto) 1.8, Baso % (Auto) 0.3, Absolute Neuts (auto) 10.4 H, Absolute Lymphs (auto) 1.63, Nucleated RBC % 0 10/19/22 08:03: Blood Type O NEGATIVE, Antibody Screen NEGATIVE 10/19/22 08:03: Syphilis Total Ab Non-reactive Physical Exam Const alert, oriented x3, no apparent distress, average body habitus, healthy appearing and well nourished HEENT normocephalic and moist oral mucous membranes Eyes PERRL Neck full ROM Resp normal respiratory effort, no retractions and no use of accessory muscles Psych mental status grossly normal, affect normal, speech normal and activity/motor behavior normal Assessment & Plan (1) : PLAN: Patient seen and examined. Comfortable with epidural. Continue to titrate Pitocin. Discussed Pitocin and MV use, and adequate. At this time will avoid breaking protocol with high-dose Pitocin. Educated patient on game plan. All questions answered
[2022-10-19] MEDS: Lactated Ringers 1,000 ML 200 ML IV (20:51)
[2022-10-20] VITALS (27 sets, daily range): BP systolic 106–143; BP diastolic 55–75; PULSE 94–130; RESP 16–18; TEMP 36.2–37.6; O2SAT 96–98
[2022-10-20] MEDS: Oxytocin 10 UNITS/ML Vial IM (00:08)
[2022-10-20] MEDS: Oxytocin 15 Units/NS 250ml 15 UNITS/250 ML IV.SOLN 83 UNITS IV (00:09)
[2022-10-20] MEDS: Methylergonovine 0.2 MG/ML Ampul IM (00:16)
[2022-10-20] MEDS: Levonorgestrel IUD (Liletta) 1 EACH INTRA-UTER (00:16)
--- NOTE | 2022-10-20 00:25 | EX.PCM.OBRPT ---
Vaginal Delivery Findings Description of Procedure: Normal spontaneous vaginal delivery of a viable male , vertex LUIS. Head and shoulders delivered to be ease. Cord clamped and cut. Placenta delivered via cord traction and fundal massage intact. No lacerations noted. Prophylactic IM Methergine given for short second stage of labor, along with standard protocol IV Pitocin and IM Pitocin. Immediate Liletta IUD inserted at the fundus, strings trimmed. EBL 400 cc Apgars 9/9
[2022-10-20] MEDS: Ibuprofen 600 MG Tablet PO ×2 (10:44→20:10)
[2022-10-21 00:13] VITALS: BP 98/54; PULSE 93; RESP 14; TEMP 36.4
[2022-10-21 05:03] VITALS: BP 110/62; PULSE 87; RESP 16; TEMP 36.3
[2022-10-21] MEDS: Ibuprofen 600 MG Tablet PO (06:14)
[2022-10-21 07:22] VITALS: BP 115/67; PULSE 91; RESP 18; TEMP 36.7; O2SAT 98
--- NOTE | 2022-10-21 08:08 | PCM.DC.BLA ---
Discharge Summary Date of Admission: 10/19/22 Date of Discharge: 10/21/22 Summary: Patient arrived on 10/19/2022 for induction of labor at term. Subsequently delivered vaginally on 10/20/2022. Routine recovery and discharged home on 10/21/2022 Meaningful Use Info Meaningful Use Diagnoses (Choose all that apply): None applicable Discharge Plan Admission Admit Date/Time: 10/19/22 07:05 Primary Reason for Your Visit: Induction of labor Attending Provider: Malik Pierce Primary Care Provider: Alvin Scott Instructions Additional Instructions / Restrictions: Regular diet, weightbearing as tolerated, okay to shower, no intercourse for 4 to 6 weeks. Call if fevers, chills, chest pain, shortness of breath. Follow-up 4 to 6 weeks Discharge Orders/Prescriptions Prescriptions: No Action 1XD Referrals / Follow Up: Alvin Scott MD [Primary Care Provider] - Disposition Disposition (needs filled in before D/C Order can be placed): Home, Self Care
--- NOTE | 2022-10-21 08:09 | PCM.PN.OB ---
Subjective Subjective No overnight complaints Objective Data Objective Data Vital Signs: Vital Signs Temp Pulse Resp BP Pulse Ox O2 Del Method 98.1 F 91 18 115/67 98 Room Air 10/21/22 07:22 10/21/22 07:22 10/21/22 07:22 10/21/22 07:22 10/21/22 07:22 10/21/22 07:22 Oxygen Delivery Method Room Air Weight: 236 lb Body Mass Index (BMI) 40.5 Intake & Output: Intake and Output for Last 24 Hours 10/19/22 10/20/22 10/21/22 23:59 23:59 23:59 Intake Total 1398.53 / 1398.53 1134.80 / 1134.80 Output Total 1200 / 1200 1600 / 1600 Balance 198.53 / 198.53 -465.20 / -465.20 Lab / Micro Data Result Diagrams: 10/19/22 08:03 Labs: Laboratory Results - last 24 hr 10/20/22 07:35: Screen NEGATIVE, Baby's Blood Type O POSITIVE, Baby's SHANTEL NEGATIVE Physical Exam Const alert, oriented x3, no apparent distress, average body habitus, healthy appearing and well nourished HEENT normocephalic and moist oral mucous membranes Eyes PERRL Neck full ROM Resp normal respiratory effort, no retractions and no use of accessory muscles GI GI Narrative: Soft, nontender, uterus firm and below umbilicus Extremity normal to inspection and full ROM Neuro moves all extremities and no focal motor deficits Psych mental status grossly normal, affect normal, speech normal and activity/motor behavior normal Assessment & Plan (1) Vaginal delivery: PLAN: day 1. Breast-feeding. Pain well controlled. Status post immediate IUD Naresh. 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
== END 2022-10-21 13:20 | disposition home or self-care (01) | DRG 807 ==
PROVIDERS: Admitting Provider Obstetrics & Gynecology; PCP Family Medicine; Visit Provider Obstetrics & Gynecology
DX: O99.824 Streptococcus B carrier state complicating childbirth (principal); Z37.0 Single live birth; O26.893 Other specified pregnancy related conditions, third trimester; Z67.90 Unspecified blood type, Rh positive; Z3A.39 39 weeks gestation of pregnancy; Z30.430 Encounter for insertion of intrauterine contraceptive device
CPT/HCPCS: 59025; 59050; 85025; 85461; 86780; 86850; 86900; 86901; 99221; J7120; A4216; G0378; J2790

== ENCOUNTER → 2023-04-11 | Outpatient (CLI) | payer OTHER, SELFPAY ==
[2023-04-11 15:37] LABS: Absolute Lymphocyte Count 1.84 X10^3/uL (0.83-4.51); Absolute Neutrophil Count 4.5 X10^3/uL (2.0-7.7); Basophil# 0.07 X10^3/uL; Eosinophil# 0.15 X10^3/uL; Eosinophils% 2.1 % (0-5); Hematocrit 42.7 % (37-47); Hemoglobin 13.3 g/dL (12.0-15.0); Lymphocyte # 1.84 X10^3/ul (0.83-4.51); Mean Corp Hgb Conc 31.1 g/dL (32-36); Mean Corpuscular Hgb 27.4 pg (27.0-32.0); Mean Corpuscular Volume 87.9 fL (81-99); Mean Platelet Vol. 10.6 fl (6.2-12.0); Monocyte% 7.1 % (0-10); NRBC Flagged by Analyzer 0 % (0-5); Neutrophil % 63.5 % (47-70); Platelet Count 314 K/mm3 (150-450); RBC Distribution Width CV 12.6 % (11.6-14.6); Red Blood Count 4.86 M/mm3 (4.2-5.4); White Blood Count 7.1 K/mm3 (4.4-11.0)
[2023-04-11 16:15] LABS: ALB/GLOB Ratio 0.9 RATIO (0.9-2.4); AST(SGOT) 11 U/L (15-37); Alanine Aminotransfer ALT/SGPT 19 U/L (13-56); Albumin, Serum 3.7 g/dL (3.2-5.0); Alkaline Phosphatase 113 U/L (45-117); Anion Gap 6 (5-15); BUN 14 mg/dL (7-18); BUN/Creat Ratio 24.1 RATIO (10-20); Calcium,Total 8.9 mg/dL (8.5-10.1); Chloride 109 mmol/L (98-107); Creatinine, Serum 0.58 mg/dL (0.55-1.02); EST Glomerular Filtration Rate 128 mL/min (>60); Est Glom Filt Rate - Afr Amer 155 mL/min (>60); Globulin 4.2 g/dL (2.2-4.2); Glucose 104 mg/dL (74-106); Iron 81 ug/dL (50-170); Iron Binding Capacity,Total 383 ug/dL (250-450); Potassium 4.4 mmol/L (3.5-5.1); Protein, Total 7.9 g/dL (6.4-8.2); Sodium Level 139 mmol/L (136-145); Thyroid Stim Hormone (TSH) 0.16 uIU/mL (0.358-3.74)
[2023-04-11 16:26] LABS: Vitamin D,25 Hydroxy 24.7 ng/mL
[2023-04-12 17:12] LABS: T4 Free Direct 1.02 ng/dL (0.76-1.46)
[2023-04-12 18:14] LABS: Hemoglobin A1c 4.7 % (3.8-5.6)
== END | disposition home or self-care (01) ==
LOC: MFPLAB 12:06
PROVIDERS: PCP Family Medicine; Visit Provider Family Medicine
DX: E55.9 Vitamin D deficiency, unspecified (principal); F41.9 Anxiety disorder, unspecified; D50.9 Iron deficiency anemia, unspecified
CPT/HCPCS: 36415; 80053; 82306; 83036; 83540; 83550; 84432; 84439; 84443; 84445; 85025; 86376; 86800

== ENCOUNTER → 2023-06-02 | Outpatient (CLI) | payer OTHER, SELFPAY ==
[2023-06-02 18:06] LABS: Vitamin D,25 Hydroxy 18.5 ng/mL
[2023-06-02 18:15] LABS: ALB/GLOB Ratio 0.8 RATIO (0.9-2.4); AST(SGOT) 8 U/L (15-37); Alanine Aminotransfer ALT/SGPT 20 U/L (13-56); Albumin, Serum 3.8 g/dL (3.2-5.0); Alkaline Phosphatase 126 U/L (45-117); Anion Gap 8 (5-15); BUN 11 mg/dL (7-18); BUN/Creat Ratio 17.7 RATIO (10-20); Calcium,Total 9.2 mg/dL (8.5-10.1); Chloride 107 mmol/L (98-107); Creatinine, Serum 0.62 mg/dL (0.55-1.02); EST Glomerular Filtration Rate 118 mL/min (>60); Est Glom Filt Rate - Afr Amer 143 mL/min (>60); Globulin 4.7 g/dL (2.2-4.2); Glucose 88 mg/dL (74-106); Potassium 3.8 mmol/L (3.5-5.1); Protein, Total 8.5 g/dL (6.4-8.2); Sodium Level 139 mmol/L (136-145)
[2023-06-07 15:07] LABS: PROEL- A/G Ratio 1.1 (0.7-1.7); PROEL- Albumin 4.1 g/dL (2.9-4.4); PROEL- Alpha-1 Globulin 0.2 g/dL (0.0-0.4); PROEL- Alpha-2 Globulin 0.8 g/dL (0.4-1.0); PROEL- Beta Globulin 1.2 g/dL (0.7-1.3); PROEL- Gamma Globulin 1.6 g/dL (0.4-1.8); PROEL- Globulin, Total 3.8 g/dL (2.2-3.9); PROEL- TOTAL PROTEIN 7.9 g/dL (6.0-8.5); PROEL-M-Spike Not Observed g/dL (Not Observed)
[2023-06-13 03:07] LABS: Anti-Thyroglobulin AB 4.5 IU/mL (0.0-0.9); Thyroglobulin RIA 7.4 ng/mL (.); Thyroid Stim Immunoglob <0.10 IU/L (0.00-0.55)
== END | disposition home or self-care (01) ==
LOC: LAB.FUTURE 15:22
PROVIDERS: PCP Family Medicine; Visit Provider Family Medicine
DX: E55.9 Vitamin D deficiency, unspecified (principal); E88.09 Other disorders of plasma-protein metabolism, not elsewhere classified; R94.6 Abnormal results of thyroid function studies
CPT/HCPCS: 36415; 80053; 82306; 84165; 84432; 84445; 86800